=== PATIENT | female | born 1965 | race Caucasian/White ===

== ENCOUNTER 2017-09-26 08:07 | Day surgery (SDC) | payer BC ==
[~2017-09-26] VITALS: Ht 157.5 cm; Wt 65.3 kg
[2017-09-26] MEDS ORDERED: SIMETHICONE 40 MG/0.6 ML ML ONE (08:19)
[2017-09-26] MEDS: MEPERIDINE HCL/PF 100 MG/ML AMP ONE ×3 (09:12→09:18)
[2017-09-26] MEDS: MIDAZOLAM HCL 5 MG/5 ML VIAL ONE ×3 (09:12→09:20)
[2017-09-26 09:31] LABS: HCG,QUAL RESULT NEGATIVE (NEGATIVE)
[2017-09-26 10:08] VITALS: BP_SYST 105
== END 2017-09-26 10:45 | disposition home or self-care (01) ==
LOC: SDS 08:07 → SMU 08:11 → SDS 10:45
PROVIDERS: ATTEND Colon & Rectal Surgery
DX: Z12.11 Encounter for screening for malignant neoplasm of colon (principal); D12.5 Benign neoplasm of sigmoid colon; E55.9 Vitamin D deficiency, unspecified; Z80.0 Family history of malignant neoplasm of digestive organs; Z80.1 Family history of malignant neoplasm of trachea, bronchus and lung; Z68.41 Body mass index [BMI] 40.0-44.9, adult
CPT/HCPCS: 45385; 84703; 88305; J2175; J2250; J7030